=== PATIENT | female | born 1975 | race African-American/Black ===

== ENCOUNTER 2016-06-25 08:01 | Emergency (ER) | payer OTHER ==
[~2016-06-25] VITALS: Ht 162.6 cm; Wt 150.0 kg
[~2016-06-25 08:01] MED LIST: LABE200T2 PO; METH250T PO
[2016-06-25 08:02] VITALS: BP 192/103; PULSE 76; RESP 20; TEMP 98.4; O2SAT 95
[2016-06-25 09:21] LABS: AUTOMATED NEUTROPHIL # 3.4 TH/MM3 (1.8-7.7); BASOPHIL % 0.3 % (0.0-2.0); EOSINOPHIL # 0.1 TH/MM3 (0-0.4); EOSINOPHIL % 1.3 % (0.0-4.0); HEMATOCRIT 32.9 % (35.0-46.0); HEMO FLAGS DIFF FINAL; LYMPH % 29.4 % (9.0-44.0); LYMPHOCYTE # 1.6 TH/MM3 (1.0-4.8); MEAN CELL VOLUME 82.6 FL (80.0-100.0); MEAN CORPUSCULAR HEMOGLOBIN 27.4 PG (27.0-34.0); MEAN CORPUSCULAR HGB CONC 33.2 % (32.0-36.0); MONO % 6.5 % (0.0-8.0); NEUT % 62.5 % (16.0-70.0); PLATELET COUNT 285 TH/MM3 (150-450); RED BLOOD COUNT 3.98 MIL/MM3 (4.00-5.30); RED CELL DISTRIBUTION WIDTH 15.8 % (11.6-17.2); WHITE BLOOD COUNT 5.4 TH/MM3 (4.0-11.0)
[2016-06-25 09:40] LABS: ANION GAP 8 MEQ/L (5-15); AST (GOT) 16 U/L (15-37); BICARBONATE 21.6 MEQ/L (21.0-32.0); BLOOD UREA NITROGEN 12 MG/DL (7-18); CHLORIDE 104 MEQ/L (98-107); GLOMERULAR FILTRATION RATE 77 ML/MIN (>89); POTASSIUM 3.7 MEQ/L (3.5-5.1); SODIUM (NA) 134 MEQ/L (136-145)
[2016-06-25 09:59] LABS: ALKALINE PHOSPHATASE 55 U/L (45-117); ALT (GPT) 27 U/L (10-53); BETA HCG QUANT 56345 MIU/ML (0-5); TOTAL BILIRUBIN ADULT 0.1 MG/DL (0.2-1.0)
[2016-06-25 10:00] VITALS: BP 156/81; PULSE 75; RESP 19; O2SAT 97
[2016-06-25] MEDS ORDERED: PREN29TA PO (10:02)
[2016-06-25 10:07] VITALS: O2SAT 96
--- NOTE | 2016-06-25 10:11 | PD ---
HPI Chief Complaint: Related Problem Time Seen by Provider: 10:02 Travel History International Travel<30 days: No Contact w/Intl Traveler<30days: No Traveled to known affect area: No History of Present Illness HPI 41-year-old female complains of vaginal spotting. Patient states that she is 14 weeks . Patient has been seen by OB physician. Patient states that her blood type is A+. Patient states that she had ultrasound done earlier in this . Patient states that she noticed some vaginal spotting today. Patient denies abdominal pain or pelvic pain. Patient denies any dysuria or frequency. Patient denies any fever chills. Patient denies any back pain. PFSH Past Medical History Cardiovascular Problems: Yes (htn) Diminished Hearing: Yes (FROM ) Hypertension: Yes Reproductive: Yes (OVARIAN CYSTS) Immunizations Current: No Tetanus Vaccination: Unknown ?: LMP: 04/01/17 : 8 Para: 6 Miscarriage: 0 : 0 Dilation and Curettage (D&C): Yes Past Surgical History Surgical History: No Previous Surgery Social History Alcohol Use: No Tobacco Use: No Substance Use: No Allergies-Medications (Allergen,Severity, Reaction): Coded Allergies: No Known Allergies (Verified , 06/22/16) Reported Meds & Prescriptions Reported Meds & Active Scripts Active Reported Plus Iron 29-1 mg ( Vit-Iron Carbonyl) 1 Tab Tab 1 Tab PO DAILY Review of Systems General / Constitutional: No: Fever Eyes: No: Visual changes HENT: No: Headaches Cardiovascular: No: Chest Pain or Discomfort Respiratory: No: Shortness of Breath Gastrointestinal: No: Abdominal Pain Genitourinary: Positive: Vaginal Bleeding, No: Dysuria Musculoskeletal: No: Pain Skin: No Rash Neurologic: No: Weakness Psychiatric: No: Depression Endocrine: No: Polydipsia Hematologic/Lymphatic: No: Easy Bruising Physical Exam Narrative GENERAL: Well-nourished, well-developed patient. SKIN: Warm and dry. HEAD: Normocephalic. EYES: No scleral icterus. No injection or drainage. NECK: Supple, trachea midline. No JVD or lymphadenopathy. CARDIOVASCULAR: Regular rate and rhythm without murmurs, gallops, or rubs. RESPIRATORY: Breath sounds equal bilaterally. No accessory muscle use. GASTROINTESTINAL: Abdomen soft, non-tender, nondistended. MUSCULOSKELETAL: No cyanosis, or edema. BACK: Nontender without obvious deformity. No CVA tenderness. HOSPICE VOLUNTEER COORDINATOR exam: Patient has dark brown discharge in vaginal vault. The cervix long thick and closed. No tenderness on palpation of the uterus. Data Data Last Documented VS Vital Signs Date Time Temp Pulse Resp B/P Pulse Ox O2 Delivery O2 Flow Rate FiO2 06/25/16 10:00 75 19 156/81 97 Room Air 06/25/16 08:02 98.4 Orders Complete Blood Count With Diff (06/25/16 08:12) Iv Access Insert/Monitor (06/25/16 08:12) Oxygen Administration (06/25/16 08:12) Oximetry (06/25/16 08:12) Ed Urine Pregnancytest Poc (06/25/16 08:12) Type And Screen (06/25/16 08:12) Beta Hcg (Quant/Titer) (06/25/16 08:12) Comprehensive Metabolic Panel (06/25/16 08:12) Labs Laboratory Tests Test 06/25/16 08:25 White Blood Count 5.4 TH/MM3 Red Blood Count 3.98 MIL/MM3 Hemoglobin 10.9 GM/DL Hematocrit 32.9 % Mean Corpuscular Volume 82.6 FL Mean Corpuscular Hemoglobin 27.4 PG Mean Corpuscular Hemoglobin 33.2 % Concent Red Cell Distribution Width 15.8 % Platelet Count 285 TH/MM3 Mean Platelet Volume 8.2 FL Neutrophils (%) (Auto) 62.5 % Lymphocytes (%) (Auto) 29.4 % Monocytes (%) (Auto) 6.5 % Eosinophils (%) (Auto) 1.3 % Basophils (%) (Auto) 0.3 % Neutrophils # (Auto) 3.4 TH/MM3 Lymphocytes # (Auto) 1.6 TH/MM3 Monocytes # (Auto) 0.4 TH/MM3 Eosinophils # (Auto) 0.1 TH/MM3 Basophils # (Auto) 0.0 TH/MM3 CBC Comment DIFF FINAL Differential Comment Sodium Level 134 MEQ/L Potassium Level 3.7 MEQ/L Chloride Level 104 MEQ/L Carbon Dioxide Level 21.6 MEQ/L Anion Gap 8 MEQ/L Blood Urea Nitrogen 12 MG/DL Creatinine 0.97 MG/DL Estimat Glomerular Filtration 77 ML/MIN Rate Random Glucose 84 MG/DL Calcium Level 8.6 MG/DL Total Bilirubin 0.1 MG/DL Aspartate Amino Transf 16 U/L (AST/SGOT) Alanine Aminotransferase 27 U/L (ALT/SGPT) Alkaline Phosphatase 55 U/L Total Protein 7.7 GM/DL Albumin 2.9 GM/DL Human Chorionic Gonadotropin, 89002 MIU/ML Quant Blood Type A POSITIVE Antibody Screen NEGATIVE MDM Medical Decision Making Medical Screen Exam Complete: Yes Emergency Medical Condition: Yes Differential Diagnosis Differential diagnosis including cervical irritation, threatened AB. Narrative Course 41-year-old female, 14 weeks , with vaginal spotting. Pelvic ultrasound shows fetus with active heart tone. Blood type is A+. Procedures Procedure Narrative Emergency Department Pelvic ultrasound was performed with patient consent. The curvilinear probe was used in the transverse and sagittal views within the suprapubic region revealing single intrauterine . heart rate was 140. Diagnosis Primary Impression: Vaginal bleeding in patient at less than 20 weeks gestation Patient Instructions: General Instructions Additional Instructions: Continue with vitamins. Follow-up with OB physician. Med/Other Pt SpecificInfo: No Meds Exist/No RX given Disposition: 01 DISCHARGE HOME Condition: Stable Oseas Galvan MD Jun 25, 2016 10:11
[2016-08-26] MEDS ORDERED: ONDA4TAB7 SL (08:59)
[2016-08-26] MEDS ORDERED: PREN28CA PO (08:59)
[2016-09-23] MEDS ORDERED: LABE200T2 PO (09:09)
[2016-09-23] MEDS ORDERED: [UNRECOGNIZED DRUG - CODE] EACH EAR (09:29)
[2016-10-06] MEDS ORDERED: [UNRECOGNIZED DRUG - OTHER] PO (10:29)
[2016-10-21] MEDS ORDERED: ZOFR4TAB PO (11:00)
[2016-11-04] MEDS ORDERED: [UNRECOGNIZED DRUG - OTHER] PO (13:19)
[2016-11-04] MEDS ORDERED: ZOFR4TAB PO (13:19)
== END 2016-06-25 10:50 | disposition home or self-care (01) ==
LOC: NEPD 08:01
DX: O46.92 Antepartum hemorrhage, unspecified, second trimester (principal); I10 Essential (primary) hypertension; Z87.42 Personal history of other diseases of the female genital tract; Z3A.14 14 weeks gestation of pregnancy
CPT/HCPCS: 80053; 84702; 84703; 85025; 86850; 86900; 86901; 99284

== ENCOUNTER → 2016-08-18 | Outpatient (CLI) | payer OTHER ==
[~2016-08-18] MED LIST changes: -METH250T PO; +ONDA4TAB7 SL; +PREN28CA PO; +PREN29TA PO; +ZOFR4TAB PO; +[UNRECOGNIZED DRUG - CODE] EACH EAR; +[UNRECOGNIZED DRUG - OTHER] PO
== END ==
LOC: HPND 08:18
PROVIDERS: ATTEND Obstetrics & Gynecology
DX: O99.212 Obesity complicating pregnancy, second trimester (principal); O09.522 Supervision of elderly multigravida, second trimester; O10.912 Unspecified pre-existing hypertension complicating pregnancy, second trimester; E66.01 Morbid (severe) obesity due to excess calories; Z68.43 Body mass index [BMI] 50.0-59.9, adult
CPT/HCPCS: 76811

== ENCOUNTER → 2016-09-15 | Outpatient (CLI) | payer OTHER, MEDICAID | LOC: HPND 09:58 | PROVIDERS: ATTEND Obstetrics & Gynecology | DX: O09.522 Supervision of elderly multigravida, second trimester (principal); O35.1XX0 Maternal care for (suspected) chromosomal abnormality in fetus, not applicable or unspecified; O99.212 Obesity complicating pregnancy, second trimester; E66.01 Morbid (severe) obesity due to excess calories; Z68.42 Body mass index [BMI] 45.0-49.9, adult; Z3A.25 25 weeks gestation of pregnancy | CPT/HCPCS: 76816 ==

== ENCOUNTER → 2016-10-13 | Outpatient (CLI) | payer OTHER, MEDICAID | LOC: HPND 09:51 | PROVIDERS: ATTEND Obstetrics & Gynecology | DX: O35.1XX0 Maternal care for (suspected) chromosomal abnormality in fetus, not applicable or unspecified (principal); O09.522 Supervision of elderly multigravida, second trimester; O10.912 Unspecified pre-existing hypertension complicating pregnancy, second trimester; O99.212 Obesity complicating pregnancy, second trimester; E66.01 Morbid (severe) obesity due to excess calories; Z68.43 Body mass index [BMI] 50.0-59.9, adult | CPT/HCPCS: 76816 ==

== ENCOUNTER 2016-12-02 08:29 | Emergency (ER) | payer OTHER, MEDICAID ==
[~2016-12-02 08:29] MED LIST changes: +FERRTAB2 PO; +ZOFR8TAB PO; -[UNRECOGNIZED DRUG - CODE] EACH EAR
--- NOTE | 2016-12-02 09:19 | PD ---
HPI Chief Complaint abdominal pain Date Seen: Dec 02, 2016 Time Seen: 09:00 (Yannick Brooks MD R1) Travel History International Travel<30 Days: No Contact w/Intl Traveler<30Days: No Known Affected Area: No (Yannick Brooks MD R1) History of Present Illness HPI Mrs. Ramirez is a 41-year-old at 36 weeks and 1 day with a history of chronic hypertension on labetalol who presents with abdominal pain. She reports that the abdominal pain started about 3 days ago, but became acutely worse last night. It woke her up from sleep, so she decided to shower, after which it became even worse. Patient reports that patient reports that her pain is worse with walking but better with rest. She describes the pain as crampy constant increasing supraumbilical pain in a bandlike distribution over her abdomen; severity 6-7 out of 10. She denies any leakage of fluid, vaginal bleeding. She endorses movement. She endorses nausea, but review systems is otherwise negative. Patient reports that she follows with OB diagnostics/maternal- medicine twice a week. She reports that her last blood pressures were high on Wednesday and . Patient was last seen by OB diagnostics on 11/30/16. Ultrasound at that time showed single IUP in cephalic presentation with BPP of 10 out of 10, blood pressure 143/59. Para: 6 : 8 (Yannick Brooks MD R1) History Past Medical History Narrative Medical Patient reports a history of chronic hypertension for which she takes labetalol 200 mg twice a day (Yannick Brooks MD R1) Obstetric History Obstetric History Patient is a . She reports that she had a D&C after her last child for vaginal bleeding. She also reports a history of one molar . The rest of her pregnancies were full-term vaginal deliveries. (Yannick Brooks MD R1) Past Surgical History Narrative Surgical D&C after last delivery (Yannick Brooks MD) Family History Narrative Family History Family history of diabetes and hypertension (Yannick Brooks MD) Social History Narrative Social History Patient lives at home with her 6 children. Alcohol Use: No Tobacco Use: No Substance Abuse: No (Yannick Brooks MD R1) Allergies-Medications (Allergen,Severity, Reaction): Coded Allergies: No Known Allergies (Verified , 11/17/16) Home Meds Active Scripts Multi-Vit/Iron-Folic Vzig-R39-Qut C (Ferralet)90-1-0.012-120 mg Tab90 Caplet PO DAILY #60 CAPLET Ref 3 Prov:Mara Mcqueen 11/23/16 Ondansetron (Zofran)8 Mg Tab8 Mg PO TID #10 TAB Ref 0 Prov:Mara Mcqueen 11/23/16 Ondansetron (Zofran)4 Mg Tab4 Mg PO Q12HR PRN (NAUSEA OR VOMITING) #6 TAB Ref 0 Prov:Joaquin Wadsworth MD 11/17/16 Ferrous Fumarate (Iron W-Stool Softener Cplet)1 Each Tablet.er1 Cap PO DAILY # 90 CAP Prov:Joaquin Wadsworth MD 11/17/16 Vit W/ Ferrous Fumara (C-José Dha 28-1-200 mg)1 Cap Cap28 Cap PO DAILY #90 CAPLET Prov:Joaquin Wadsworth MD 08/26/16 Ondansetron Odt 4 Mg Tab4 Mg SL Q12HR PRN (Nausea/Vomiting) #20 TAB Ref 0 Prov:Joaquin Wadsworth MD 08/26/16 Reported Medications Labetalol 200 Mg [id number] Mg PO BID Ref 0 09/23/16 Vit-Iron Carbonyl ( Plus Iron 29-1 mg)1 Tab Tab1 Tab PO DAILY #30 TAB Ref 0 06/25/16 Review of Systems General / Constitutional: No: Fever, Chills Eyes: No: Blurred Vision, Visual changes HENT: No: Headaches Cardiovascular: No: Chest Pain or Discomfort, Edema Respiratory: No: Short of Breath Gastrointestinal: Nausea, Abdominal Pain, No: Vomiting Genitourinary: No: Dysuria Musculoskeletal: Cramping, Pain (abdominal), No: Edema Skin: No Rash (Yannick Brooks MD R1) Physical Exam Blood pressure 153/68, heart rate 67, respiratory rate 22, temperature 97.6, pain 6. Narrative GENERAL: Well-nourished, well-developed morbidly obese female patient. SKIN: Warm and dry. HEAD: Normocephalic and atraumatic. EYES: No scleral icterus. No injection or drainage. ENT: No nasal drainage noted. Mucous membranes pink. Airway patent. NECK: Supple, trachea midline. No JVD. CARDIOVASCULAR: Regular rate and rhythm without murmurs, gallops, or rubs. RESPIRATORY: Breath sounds equal bilaterally. No accessory muscle use. BREASTS: Bilateral exam showed no masses , no retractions, no nipple discharge. ABDOMEN/GI: Abdomen soft, non-tender, bowel sounds present, no rebound, no guarding Gravid to [-] weeks size Fundal Height: [-] GENITOURINARY: External Genitalia: intact and normal in appearance BUS glands: [-] Cervix: [-] Dilatation: [-] Effacement: [-] Station: [-] Presentation: [-] Membranes: [intact or ruptured] Uterine Contractions: [-] FHT's: Category: [-] Baseline: [-] Reactive: [-] Variability: [-] Decels: [-] EXTREMITIES: No cyanosis. Trace pitting edema on the right leg. BACK: Nontender without obvious deformity. No CVA tenderness. NEUROLOGICAL: Awake and alert. Motor and sensory grossly within normal limits. Five out of 5 muscle strength in all muscle groups. Normal speech. (Yannick Boroks MD R1) Data Data Vital Signs Reviewed: Yes (Yannick Brooks MD R1) MDM Plan Mrs. Ramirez is a 41-year-old at 36 weeks and 1 day with a history of chronic hypertension who presents with abdominal pain. 1. Abdominal pain Monitor vital signs Monitor heart rate Monitor tocometry UA Tylenol 2. Nausea Zofran ODT 3. Elevated blood pressure of 153/68 in the context of chronic hypertension on labetalol Hypertension in labs including CBC, CMP, uric acid, UA, urine creatinine - relevant labs returned within normal limits except for anemia, which patient was already aware of Continue to monitor blood pressure d/w Dr. Waller. Addendum: Patient continues to report intractable pain. Ordered fentanyl 50 g IM 1. Discussed that hot showers, hot baths, warm compresses may help, in addition to bed rest. Patient reported that she can't sleep secondary to pain. Explained that the pain medication may help with that. Discussed indications to return to the OB ED. (Yannick Brooks MD R1) Diagnosis Diagnosis: Primary Impression: Abdominal pain affecting Additional Impression: HTN (hypertension) Disposition: 01 DISCHARGE HOME Condition: Good Attestation I have discussed this patient's care and plan with resident (Adali Waller MD) Yannick Brooks MD R1 Dec 02, 2016 09:19 Adali Waller MD Dec 08, 2016 12:45
[2016-12-02] MEDS ORDERED: ONDANSETRON ODT 4 MG TAB PO ONE (09:30)
[2016-12-02] MEDS ORDERED: ACETAMINOPHEN 325 MG TAB PO ONE (09:30)
[2016-12-02 10:13] LABS: MEAN CELL VOLUME 83.3 FL (80.0-100.0); MEAN CORPUSCULAR HEMOGLOBIN 27.6 PG (27.0-34.0); MEAN CORPUSCULAR HGB CONC 33.1 % (32.0-36.0); PLATELET COUNT 247 TH/MM3 (150-450); RED BLOOD COUNT 3.61 MIL/MM3 (4.00-5.30); RED CELL DISTRIBUTION WIDTH 17.7 % (11.6-17.2); REVIEW FLAG FINAL; WHITE BLOOD COUNT 6.1 TH/MM3 (4.0-11.0)
[2016-12-02 10:35] LABS: BLOOD UREA NITROGEN 9 MG/DL (7-18); CHLORIDE 106 MEQ/L (98-107); POTASSIUM 3.6 MEQ/L (3.5-5.1); SODIUM (NA) 137 MEQ/L (136-145)
[2016-12-02 10:37] LABS: BACTERIA, URINE RARE /hpf; BLOOD, URINE NEG (NEG); COMMENT (UR) CULT NOT INDICATED; CULTURE IF INDICATED CULT NOT INDICATED; GLUCOSE,URINE NEG (NEG); KETONE, URINE NEG (NEG); MUCUS URINE FEW /lpf (OCC); NITRITE,URINE NEG (NEG); SQUAMOUS EPITHELIAL CELL URINE 8 /hpf (0-5); URINE COLOR YELLOW (YELLW/STRAW)
[2016-12-02 11:05] LABS: ALT (GPT) 30 U/L (10-53); ANION GAP 7 MEQ/L (5-15); AST (GOT) 25 U/L (15-37); BICARBONATE 23.9 MEQ/L (21.0-32.0); GLOMERULAR FILTRATION RATE 87 ML/MIN (>89); URIC ACID 5.8 MG/DL (2.6-6.0)
[2016-12-02 11:07] LABS: ALKALINE PHOSPHATASE 103 U/L (45-117); TOTAL BILIRUBIN ADULT 0.3 MG/DL (0.2-1.0)
== END 2016-12-02 12:14 | disposition home or self-care (01) ==
LOC: HOBED 08:32
DX: O26.893 Other specified pregnancy related conditions, third trimester (principal); R10.9 Unspecified abdominal pain; R11.0 Nausea; O16.3 Unspecified maternal hypertension, third trimester; Z3A.36 36 weeks gestation of pregnancy; Z79.899 Other long term (current) drug therapy
CPT/HCPCS: 36415; 80053; 81001; 82570; 84550; 85027; 96372; 99284; J3010

== ENCOUNTER 2016-12-09 12:17 | Emergency (ER) | payer OTHER, MEDICAID ==
[2016-12-09 12:19] VITALS: BP 143/85; PULSE 70; RESP 20; TEMP 98.4; O2SAT 100
--- NOTE | 2016-12-09 12:40 | PD ---
Physical Exam Time Seen by Provider: 12:40 Narrative 41yo F, 37 weeks , was sent by Dr. Gonzalez for c/o SOB, chronic HTN, morbid obesity, tiredness, and dizziness for cardiac workup and EKG. Patient was sent to L&D and was sent back to ER for cardiac workup. Patient seen in triage. VS reviewed. Patient awaiting bed placement. Data Data Last Documented VS Vital Signs Date Time Temp Pulse Resp B/P Pulse Ox O2 Delivery O2 Flow Rate FiO2 12/09/16 12:19 98.4 70 20 143/85 100 MDM Supervised Visit with VICENTE: Arelis Perry Dec 09, 2016 12:40
[2016-12-09 14:24] LABS: AUTOMATED NEUTROPHIL # 4.4 TH/MM3 (1.8-7.7); BASOPHIL % 0.2 % (0.0-2.0); EOSINOPHIL # 0.1 TH/MM3 (0-0.4); EOSINOPHIL % 1.3 % (0.0-4.0); HEMATOCRIT 30.7 % (35.0-46.0); HEMO FLAGS DIFF FINAL; LYMPH % 20.2 % (9.0-44.0); LYMPHOCYTE # 1.3 TH/MM3 (1.0-4.8); MEAN CELL VOLUME 83.8 FL (80.0-100.0); MEAN CORPUSCULAR HEMOGLOBIN 26.7 PG (27.0-34.0); MEAN CORPUSCULAR HGB CONC 31.8 % (32.0-36.0); MONO % 7.9 % (0.0-8.0); NEUT % 70.4 % (16.0-70.0); PLATELET COUNT 235 TH/MM3 (150-450); RED BLOOD COUNT 3.67 MIL/MM3 (4.00-5.30); RED CELL DISTRIBUTION WIDTH 17.6 % (11.6-17.2); WHITE BLOOD COUNT 6.3 TH/MM3 (4.0-11.0)
[2016-12-09 14:33] LABS: APTT (PATIENT) 29.5 SEC (24.3-30.1); PROTHROMBIN TIME - PATIENT 11.1 SEC (9.8-11.6)
[2016-12-09 14:50] LABS: ANION GAP 9 MEQ/L (5-15); BICARBONATE 22.7 MEQ/L (21.0-32.0); BLOOD UREA NITROGEN 9 MG/DL (7-18); CHLORIDE 105 MEQ/L (98-107); GLOMERULAR FILTRATION RATE 83 ML/MIN (>89); POTASSIUM 3.7 MEQ/L (3.5-5.1); SODIUM (NA) 137 MEQ/L (136-145)
[2016-12-09 14:53] LABS: CREATINE KINASE 101 U/L (26-192)
[2016-12-09 15:05] LABS: CKMB 1.1 NG/ML (0.5-3.6)
--- NOTE | 2016-12-09 15:49 | PD ---
HPI Chief Complaint: Cardiac Complaint Time Seen by Provider: 15:40 Travel History International Travel<30 days: No Contact w/Intl Traveler<30days: No Traveled to known affect area: No History of Present Illness HPI 41-year-old female came to the emergency room with history of shortness of breath that she complained to her OB today. Patient is 36 weeks . They sent her to the emergency room to get an EKG and blood test. Patient says that she has been in the waiting room since 11:30 AM. She last ate at 8:00 before going for her OB checkup. Blood test was done in the waiting room so that by the time she came in to see me I had the blood test results back. They were all within normal limit. I discussed with the patient. She never had any chest pain. She is obese and the together seems to be making her uncomfortable as well. Vital signs were otherwise stable. Patient is deaf but can read lips and speak. She has history of hypertension and is on labetalol twice a day. [facility] [place] Past Medical History Narrative Medical List of her past medical, surgical, social and family history was reviewed from the nursing note. Cardiovascular Problems: Yes (htn) Diminished Hearing: Yes (FROM ) Hypertension: Yes Reproductive: Yes ([employer] CY[employer]) Immunizations Current: No : 8 Para: 6 Miscarriage: 0 : 0 Dilation and Curettage (D&C): Yes Social History Alcohol Use: No Tobacco Use: No Substance Use: No Allergies-Medications (Allergen,Severity, Reaction): Coded Allergies: No Known Allergies (Verified , 12/09/16) Comments No known drug allergies. Reported Meds & Prescriptions Reported Meds & Active Scripts Active Ferralet (Multi-Vit/Iron-Folic Dejq-X91-[id number] C) 90-1-0.012-120 mg Tab 90 Caplet PO DAILY Zofran (Ondansetron HCl) 8 Mg Tab 8 Mg PO TID Zofran (Ondansetron HCl) 4 Mg Tab 4 Mg PO Q12HR PRN Iron W-Stool Softener Cplet (Ferrous Fumarate) 1 Each Tablet.er 1 Cap PO DAILY C-José Dha 28-1-200 mg ( Vit W/ Ferrous Fumara) 1 Cap Cap 28 Cap PO DAILY Ondansetron Odt 4 Mg Tab 4 Mg SL Q12HR PRN Reported Labetalol (Labetalol HCl) 200 Mg Tab 200 Mg PO BID Plus Iron 29-1 mg ( Vit-Iron Carbonyl) 1 Tab Tab 1 Tab PO DAILY Narrative Medication List of her home medications reviewed from the nursing note. Review of Systems Except as stated in HPI: all other systems reviewed are Neg Physical Exam Narrative GENERAL: Awake, alert, morbidly obese, anxious SKIN: Focused skin assessment warm/dry. HEAD: Atraumatic. Normocephalic. EYES: Pupils equal and round. No scleral icterus. No injection or drainage. ENT: No nasal bleeding or discharge. Mucous membranes pink and moist. NECK: Trachea midline. No JVD. CARDIOVASCULAR: Regular rate and rhythm. No murmur appreciated. RESPIRATORY: No accessory muscle use. Clear to auscultation. Breath sounds equal bilaterally. GASTROINTESTINAL: Abdomen soft, non-tender, nondistended. Hepatic and splenic margins not palpable. MUSCULOSKELETAL: No obvious deformities. No clubbing. No cyanosis. No edema. NEUROLOGICAL: Awake and alert. No obvious cranial nerve deficits. Motor grossly within normal limits. Normal speech. PSYCHIATRIC: Appropriate mood and affect; insight and judgment normal. Data Data Last Documented VS Vital Signs Date Time Temp Pulse Resp B/P Pulse Ox O2 Delivery O2 Flow Rate FiO2 12/09/16 16:21 97 Room Air 12/09/16 12:19 98.4 70 20 143/85 Orders Electrocardiogram (12/09/16 12:43) Complete Blood Count With Diff (12/09/16 12:43) Basic Metabolic Panel (Bmp) (12/09/16 12:43) Ckmb (Isoenzyme) Profile (12/09/16 12:43) Troponin I (12/09/16 12:43) Iv Access Insert/Monitor (12/09/16 12:43) Ecg Monitoring (12/09/16 12:43) Oxygen Administration (12/09/16 12:43) Oximetry (12/09/16 12:43) Act Partial Throm Time (Ptt) (12/09/16 12:43) Prothrombin Time / Inr (Pt) (12/09/16 12:43) CKMB (12/09/16 13:35) CKMB% (12/09/16 13:35) Acetaminophen (Tylenol) (12/09/16 16:00) Labs Laboratory Tests Test 12/09/16 13:35 White Blood Count 6.3 TH/MM3 Red Blood Count 3.67 MIL/MM3 Hemoglobin 9.8 GM/DL Hematocrit 30.7 % Mean Corpuscular Volume 83.8 FL Mean Corpuscular Hemoglobin 26.7 PG Mean Corpuscular Hemoglobin 31.8 % Concent Red Cell Distribution Width 17.6 % Platelet Count 235 TH/MM3 Mean Platelet Volume 7.5 FL Neutrophils (%) (Auto) 70.4 % Lymphocytes (%) (Auto) 20.2 % Monocytes (%) (Auto) 7.9 % Eosinophils (%) (Auto) 1.3 % Basophils (%) (Auto) 0.2 % Neutrophils # (Auto) 4.4 TH/MM3 Lymphocytes # (Auto) 1.3 TH/MM3 Monocytes # (Auto) 0.5 TH/MM3 Eosinophils # (Auto) 0.1 TH/MM3 Basophils # (Auto) 0.0 TH/MM3 CBC Comment DIFF FINAL Differential Comment Prothrombin Time 11.1 SEC Prothromb Time International 1.0 RATIO Ratio Activated Partial 29.5 SEC Thromboplast Time Sodium Level 137 MEQ/L Potassium Level 3.7 MEQ/L Chloride Level 105 MEQ/L Carbon Dioxide Level 22.7 MEQ/L Anion Gap 9 MEQ/L Blood Urea Nitrogen 9 MG/DL Creatinine 0.91 MG/DL Estimat Glomerular Filtration 83 ML/MIN Rate Random Glucose 73 MG/DL Calcium Level 8.7 MG/DL Total Creatine Kinase 101 U/L Creatine Kinase MB 1.1 NG/ML Troponin I LESS THAN 0.02 NG/ML MDM Medical Decision Making Medical Screen Exam Complete: Yes Emergency Medical Condition: Yes Medical Record Reviewed: Yes Interpretation(s) Twelve-lead EKG was reviewed by me. Normal sinus rhythm, normal axis, LVH. Heart rate of 68 bpm. Differential Diagnosis Third trimester , hypertension, obesity Narrative Course 3:40 PM I explained to the patient that her blood test results look okay. She is slightly anemic but she is on vitamin and iron pills. At this point she needs to go back to her OB in follow-up as per her appointments. Procedures EKG Prior to Arrival: No Diagnosis Primary Impression: Third trimester Additional Impressions: Shortness of breath Obesity Qualified Code: E66.9 - Obesity with serious comorbidity, unspecified classification, unspecified obesity type Referrals: Primary Care Physician Additional Instructions: Please return to the ER if the condition worsens or any other new concerns. Please follow-up with your BUTCHER HELPER for the -related issues. Med/Other Pt SpecificInfo: No Change to Meds Disposition: 01 DISCHARGE HOME Condition: Gail Baig MD Dec 09, 2016 15:49
[2016-12-09] MEDS ORDERED: ACETAMINOPHEN 325 MG TAB PO ONE (16:00)
[2016-12-09 16:21] VITALS: O2SAT 97
--- NOTE | 2016-12-10 15:06 | EKG ---
Date Performed: 12/09/2016 Time Performed: 13:11:14 PTAGE: 41 years EKG: Sinus rhythm MINIMAL VOLTAGE CRITERIA FOR LVH, CONSIDER NORMAL VARIANT BORDERLINE ECG PREVIOUS TRACING : 03/10/2002 15.14 Since previous tracing, no significant change noted DOCTOR: Kalyani Ramos Interpretating Date/Time 12/10/2016 15:05:23
== END 2016-12-09 17:22 | disposition home or self-care (01) ==
LOC: NEPE 12:17
DX: O26.893 Other specified pregnancy related conditions, third trimester (principal); R06.02 Shortness of breath; O99.213 Obesity complicating pregnancy, third trimester; Z3A.36 36 weeks gestation of pregnancy; H91.90 Unspecified hearing loss, unspecified ear; I10 Essential (primary) hypertension
CPT/HCPCS: 80048; 82550; 82552; 84484; 85025; 85610; 85730; 93005; 99285

== ENCOUNTER 2016-12-21 08:31 | Inpatient (IN) | payer OTHER, MEDICAID, MEDICARE ==
[2016-12-21] VITALS (158 sets, daily range): BP systolic 126–206; BP diastolic 66–116; PULSE 53–87; RESP 16–26; TEMP 97.7–98.5; O2SAT 98–100
--- NOTE | 2016-12-21 09:41 | PD ---
HPI Chief Complaint Abdominal pain and labored breathing Date Seen: Dec 21, 2016 Time Seen: 09:31 Travel History International Travel<30 Days: No Contact w/Intl Traveler<30Days: No Known Affected Area: No History of Present Illness HPI 41-year-old who is at 38 weeks and 6 days being followed with morbid obesity, chronic hypertension on labetalol, chronic fatigue, comes into the hospital today complaining of labored breathing and abdominal pain. She can't tell whether this is contractions but she feels like she's got a band across the fundus. Patient states that the labor breathing has been present for several weeks and occasionally associated with sharp chest pain and I do see this documented in her records. Patient is a chronic hypertension on labetalol 200 mg 3 times a day with her last 24 hour urine showing a 231 mg of protein at 09/23/2016. Patient is been seeing maternal medicine as well and she has resolved pyelectasis. Para: 6 : 7 History Past Medical History Narrative Medical Chronic hypertension Morbid obesity [place] of hearingpatient does not wear hearing aids nor does she sign. She states that she reads lips and she would like people to come close in order to communicate. Obstetric History Obstetric History Spontaneous vaginal delivery 6, ranging from 7 lbs. 2 oz.-8 lbs. 6 oz. Past Surgical History Surgical History: No Previous Surgery Family History Family History: Negative Social History Alcohol Use: No Tobacco Use: No Substance Abuse: No Allergies-Medications (Allergen,Severity, Reaction): Coded Allergies: No Known Allergies (Verified , 12/16/16) Home Meds Active Scripts Multi-Vit/Iron-Folic Aask-Y10-Vrh C (Ferralet)90-1-0.012-120 mg Tab90 Caplet PO DAILY #60 CAPLET Ref 3 Prov:Mara Mcqueen 11/23/16 Ondansetron (Zofran)8 Mg Tab8 Mg PO TID #10 TAB Ref 0 Prov:Mara Mcqueen 11/23/16 Ondansetron (Zofran)4 Mg Tab4 Mg PO Q12HR PRN (NAUSEA OR VOMITING) #6 TAB Ref 0 Prov:Joaquin Wadsworth MD 11/17/16 Ferrous Fumarate (Iron W-Stool Softener Cplet)1 Each Tablet.er1 Cap PO DAILY # 90 CAP Prov:Joaquin Wadsworth MD 11/17/16 Vit W/ Ferrous Fumara (C-José Dha 28-1-200 mg)1 Cap Cap28 Cap PO DAILY #90 CAPLET Prov:Joaquin Wadsworth MD 08/26/16 Ondansetron Odt 4 Mg Tab4 Mg SL Q12HR PRN (Nausea/Vomiting) #20 TAB Ref 0 Prov:Joaquin Wadsworth MD 08/26/16 Reported Medications Labetalol 200 Mg [id number] Mg PO BID Ref 0 09/23/16 Vit-Iron Carbonyl ( Plus Iron 29-1 mg)1 Tab Tab1 Tab PO DAILY #30 TAB Ref 0 06/25/16 Review of Systems Except as stated in HPI: all other systems reviewed are Neg Physical Exam Narrative GENERAL: Well-nourished, well-developed patient. SKIN: Warm and dry. HEAD: Normocephalic and atraumatic. EYES: No scleral icterus. No injection or drainage. ENT: No nasal drainage noted. Mucous membranes pink. Airway patent. NECK: Supple, trachea midline. No JVD. CARDIOVASCULAR: Regular rate and rhythm without murmurs, gallops, or rubs. RESPIRATORY: Breath sounds equal bilaterally. No accessory muscle use. ABDOMEN/GI: Abdomen soft, non-tender, bowel sounds present, no rebound, no guarding Gravid to [-42] weeks size Fundal Height: [-] GENITOURINARY: External Genitalia: intact and normal in appearance BUS glands: [-Normal] Cervix: [Posterior-] Dilatation: [-3-4] Effacement: [-80] Station: [--3] Presentation: [-Vertex] Membranes: [intact ] Uterine Contractions: [Cannot monitor due to patient's habitus-] FHT's: Category: [1-] Baseline: [-140] Reactive: [Moderate-] Variability: [-Moderate] Decels: [-Absent] EXTREMITIES: No cyanosis or edema. BACK: Nontender without obvious deformity. No CVA tenderness. NEUROLOGICAL: Awake and alert. Motor and sensory grossly within normal limits. Five out of 5 muscle strength in all muscle groups. Normal speech. Data Data Vital Signs Reviewed: Yes MDM Plan 41-year-old with morbid obesity, chronic hypertension, labored breathing, sharp chest pain, abdominal pain, at 38 weeks and 6 days --GBS negative --Stat EKG this has been a chronic issue with labored breathing and sharp chest discomfort. Doubt cardiac but EDK ordered --Chronic hypertension with exacerbation with severe hypertension. Will start severe hypertension protocol. Admit for induction of labor after BP managed --Magnesium sulfate. --Advanced maternal age - MFM has evaluated --Renal pyectasis resolved on sonogram Diagnosis Diagnosis: Primary Impression: 38 weeks gestation of Additional Impressions: Hard of hearing Severe hypertension affecting in third trimester Chronic hypertension affecting Morbid obesity Advanced maternal age in multigravida Adali Waller MD Dec 21, 2016 09:41
[2016-12-21] MEDS ORDERED: LACTATED RINGER'S 1000 ML INJ 1,000 ML IV PRN (09:42)
[2016-12-21] MEDS ORDERED: LIDOCAINE HCL 1% 50 ML VIAL INFIL PRN (09:45)
[2016-12-21] MEDS ORDERED: LIDOCAINE HCL 1% 50 ML VIAL I-DERMAL PRN (09:45)
[2016-12-21] MEDS ORDERED: SODIUM CHLORID 0.9% 500 ML INJ 500 ML IV PRN (09:45)
[2016-12-21] MEDS ORDERED: ONDANSETRON HCL 4 MG/2 ML VIAL IV PRN (09:45)
[2016-12-21] MEDS ORDERED: CITRIC ACID-SODIUM CITRATE LIQ 30 ML UDC PO SCH (09:45)
[2016-12-21] MEDS ORDERED: MINERAL OIL 10 ML VIAL TOPICAL PRN (09:45)
[2016-12-21] MEDS ORDERED: OXYTOCIN 30 UNITS-500ML PREMIX 500 ML IV ONE ×2 (09:45→23:15)
[2016-12-21] MEDS ORDERED: SODIUM CHLOR 0.9% 1000 ML INJ 1,000 ML IV PRN (10:02)
[2016-12-21 10:45] LABS: AUTOMATED NEUTROPHIL # 3.6 TH/MM3 (1.8-7.7); BASOPHIL % 0.2 % (0.0-2.0); EOSINOPHIL # 0.1 TH/MM3 (0-0.4); EOSINOPHIL % 1.4 % (0.0-4.0); HEMATOCRIT 31.4 % (35.0-46.0); HEMO FLAGS DIFF FINAL; LYMPH % 21.8 % (9.0-44.0); LYMPHOCYTE # 1.1 TH/MM3 (1.0-4.8); MEAN CELL VOLUME 83.3 FL (80.0-100.0); MEAN CORPUSCULAR HEMOGLOBIN 26.9 PG (27.0-34.0); MEAN CORPUSCULAR HGB CONC 32.3 % (32.0-36.0); MONO % 6.9 % (0.0-8.0); NEUT % 69.7 % (16.0-70.0); PLATELET COUNT 262 TH/MM3 (150-450); RED BLOOD COUNT 3.76 MIL/MM3 (4.00-5.30); RED CELL DISTRIBUTION WIDTH 17.7 % (11.6-17.2); WHITE BLOOD COUNT 5.2 TH/MM3 (4.0-11.0)
[2016-12-21 11:08] LABS: ANION GAP 9 MEQ/L (5-15); AST (GOT) 40 U/L (15-37); BICARBONATE 21.2 MEQ/L (21.0-32.0); BLOOD UREA NITROGEN 9 MG/DL (7-18); CHLORIDE 106 MEQ/L (98-107); GLOMERULAR FILTRATION RATE 84 ML/MIN (>89); POTASSIUM 3.3 MEQ/L (3.5-5.1); SODIUM (NA) 136 MEQ/L (136-145)
[2016-12-21 11:11] LABS: ALKALINE PHOSPHATASE 125 U/L (45-117); ALT (GPT) 48 U/L (10-53); TOTAL BILIRUBIN ADULT 0.4 MG/DL (0.2-1.0); URIC ACID 6.7 MG/DL (2.6-6.0)
[2016-12-21] MEDS ORDERED: MAGNESIUM SULFATE 40 GM PREMIX 1,000 ML IV SCH ×2 (11:52→23:18)
[2016-12-21] MEDS ORDERED: MAGNESIUM SULFATE 4 GM PREMIX 100 ML ONE (11:54)
--- NOTE | 2016-12-21 11:57 | HHI.HP ---
History & Physical H&P HPI Chief Complaint Abdominal pain and labored breathing Date Seen: Dec 21, 2016 Time Seen: 09:31 Travel History International Travel<30 Days: No Contact w/Intl Traveler<30Days: No Known Affected Area: No History of Present Illness HPI 41-year-old who is at 38 weeks and 6 days being followed with morbid obesity, chronic hypertension on labetalol, chronic fatigue, comes into the hospital today complaining of labored breathing and abdominal pain. She can't tell whether this is contractions but she feels like she's got a band across the fundus. Patient states that the labor breathing has been present for several weeks and occasionally associated with sharp chest pain and I do see this documented in her records. Patient is a chronic hypertension on labetalol 200 mg 3 times a day with her last 24 hour urine showing a 231 mg of protein at 09/23/2016. Patient is been seeing maternal medicine as well and she has resolved pyelectasis. Para: 6 : 7 History Past Medical History Narrative Medical Chronic hypertension Morbid obesity [place] of hearingpatient does not wear hearing aids nor does she sign. She states that she reads lips and she would like people to come close in order to communicate. Obstetric History Obstetric History Spontaneous vaginal delivery 6, ranging from 7 lbs. 2 oz.-8 lbs. 6 oz. Past Surgical History Surgical History: No Previous Surgery Family History Family History: Negative Social History Alcohol Use: No Tobacco Use: No Substance Abuse: No Allergies-Medications (Allergen,Severity, Reaction): Coded Allergies: No Known Allergies (Verified , 12/16/16) Home Meds Active Scripts Multi-Vit/Iron-Folic Ietq-E88-Uqs C (Ferralet)90-1-0.012-120 mg Tab90 Caplet PO DAILY #60 CAPLET Ref 3 Prov:Mara Mcqueen 11/23/16 Ondansetron (Zofran)8 Mg Tab8 Mg PO TID #10 TAB Ref 0 Prov:Maar Mcqueen 11/23/16 Ondansetron (Zofran)4 Mg Tab4 Mg PO Q12HR PRN (NAUSEA OR VOMITING) #6 TAB Ref 0 Prov:Joaquin Wadsworth MD 11/17/16 Ferrous Fumarate (Iron W-Stool Softener Cplet)1 Each Tablet.er1 Cap PO DAILY # 90 CAP Prov:Joaquin Wadsworth MD 11/17/16 Vit W/ Ferrous Fumara (C-José Dha 28-1-200 mg)1 Cap Cap28 Cap PO DAILY #90 CAPLET Prov:Joaquin Wadsworth MD 08/26/16 Ondansetron Odt 4 Mg Tab4 Mg SL Q12HR PRN (Nausea/Vomiting) #20 TAB Ref 0 Prov:Joaquin Wadsworth MD 08/26/16 Reported Medications Labetalol 200 Mg Ibd293 Mg PO BID Ref 0 09/23/16 Vit-Iron Carbonyl ( Plus Iron 29-1 mg)1 Tab Tab1 Tab PO DAILY #30 TAB Ref 0 06/25/16 Review of Systems Except as stated in HPI: all other systems reviewed are Neg Physical Exam Narrative GENERAL: Well-nourished, well-developed patient. SKIN: Warm and dry. HEAD: Normocephalic and atraumatic. EYES: No scleral icterus. No injection or drainage. ENT: No nasal drainage noted. Mucous membranes pink. Airway patent. NECK: Supple, trachea midline. No JVD. CARDIOVASCULAR: Regular rate and rhythm without murmurs, gallops, or rubs. RESPIRATORY: Breath sounds equal bilaterally. No accessory muscle use. ABDOMEN/GI: Abdomen soft, non-tender, bowel sounds present, no rebound, no guarding Gravid to [-42] weeks size Fundal Height: [-] GENITOURINARY: External Genitalia: intact and normal in appearance BUS glands: [-Normal] Cervix: [Posterior-] Dilatation: [-3-4] Effacement: [-80] Station: [--3] Presentation: [-Vertex] Membranes: [intact ] Uterine Contractions: [Cannot monitor due to patient's habitus-] FHT's: Category: [1-] Baseline: [-140] Reactive: [Moderate-] Variability: [-Moderate] Decels: [-Absent] EXTREMITIES: No cyanosis or edema. BACK: Nontender without obvious deformity. No CVA tenderness. NEUROLOGICAL: Awake and alert. Motor and sensory grossly within normal limits. Five out of 5 muscle strength in all muscle groups. Normal speech. Data Data Vital Signs Reviewed: Yes MDM Plan 41-year-old with morbid obesity, chronic hypertension, labored breathing, sharp chest pain, abdominal pain, at 38 weeks and 6 days 1. IUP- Category I tracing, reassuring. 2. IOL for poorly controlled chronic hypertension- Labetalol 20mg IV PRN BP >160 /110, Magnesium Sulfate 3. GBS negative 4. Morbid Obesity 5. Grand Multiparity 6. Hearing impaired sdw Dr. Mir and Dr. Reddy R1 Dunia Allen MD, R3 Dec 21, 2016 11:57
[2016-12-21] MEDS ORDERED: OXYTOCIN 30 UNITS-500ML PREMIX 500 ML IV SCH (12:00)
[2016-12-21] MEDS ORDERED: MAGNESIUM SULFATE 4 GM PREMIX 100 ML IV ONE (12:00)
--- NOTE | 2016-12-21 12:07 | PD.LABORPN ---
Subjective Subjective Patient is resting comfortably in bed. Objective Vital Signs Vital Signs Date Time Temp Pulse Resp B/P Pulse Ox O2 Delivery O2 Flow Rate FiO2 12/21/16 11:11 24 12/21/16 11:11 98.5 12/21/16 11:10 61 12/21/16 11:05 60 12/21/16 11:02 61 164/85 12/21/16 10:15 26 12/21/16 10:09 65 161/86 12/21/16 09:43 67 158/91 Objective Pelvic Exam: Cervix: midposition Dilatation: 5 Effacement: 70 Station: -3 Presentation: vertex Membranes: AROM, clear fluid Uterine Contractions: irregular FHT's: Category: I Baseline: 140 Reactive: + Variability: moderate Decels: none Assessment/Plan Assessment and Plan 41 year old at 38-6/7 weeks gestation. 1. IUP- Category I tracing, reassuring. 2. IOL for poorly controlled chronic hypertension- Labetalol 20mg IV PRN BP >160 /110, Magnesium Sulfate Pitocin, AROM with clear fluid, IUPC and FSE placed 3. GBS negative 4. Morbid Obesity 5. Grand Multiparity 6. Hearing impaired sdw Dr. Mir and Dr. Reddy R1 Dunia Allen MD, R3 Dec 21, 2016 12:07
[2016-12-21] MEDS: LACTATED RINGER'S 1000 ML INJ 1,000 ML IV SCH ×3 (13:36→19:07)
[2016-12-21] MEDS: LABETALOL HCL 100 MG/20 ML VIAL IV PUSH PRN ×3 (13:40→20:29)
[2016-12-21 13:59] LABS: BACTERIA, URINE RARE /hpf; BLOOD, URINE NEG (NEG); COMMENT (UR) CATH-CULTURE IND; CULTURE IF INDICATED CATH CULTURE IND; GLUCOSE,URINE NEG (NEG); KETONE, URINE NEG (NEG); MUCUS URINE MOD /lpf (OCC); NITRITE,URINE NEG (NEG); PH, URINE 6.5 (5.0-8.5); SQUAMOUS EPITHELIAL CELL URINE 3 /hpf (0-5); URINE COLOR YELLOW (YELLW/STRAW)
[2016-12-21] MEDS ORDERED: fentaNYL 2MCG-BUPIV 0.125% INJ 100 ML ONE (14:50)
[2016-12-21] MEDS ORDERED: ePHEDrine/NS 25 MG/5 ML SYR ONE (14:50)
--- NOTE | 2016-12-21 16:48 | EKG ---
Date Performed: 12/21/2016 Time Performed: 09:46:04 PTAGE: 41 years EKG: Sinus rhythm POSSIBLE LEFT VENTRICULAR HYPERTROPHY ABNORMAL ECG PREVIOUS TRACING : 12/09/2016 13.11 Compared to prior tracing no significant change DOCTOR: Brianda Santizo Interpretating Date/Time 12/21/2016 16:46:21
[2016-12-21] MEDS ORDERED: LABETALOL HCL 200 MG TAB PO SCH (21:00)
[2016-12-21] MEDS ORDERED: OXYTOCIN 10 UNIT/ML AMP ONE (21:55)
[2016-12-21] MEDS ORDERED: ceFAZolin INJ 1,000 MG VIAL ONE (22:02)
[2016-12-21 22:29] LABS: BLOOD GAS O2 HGB SATURATION 9 % (90-100); CORD BLOOD GAS HCO3 20 mmol/L (21-29); CORD BLOOD GAS PCO2 93 mmHG (34-78); CORD BLOOD GAS PH 6.97 (7.14-7.42)
[2016-12-21 22:30] LABS: CORD BLOOD GAS PO2 14 mmHG (3.0-40.0); DRAW SITE CORD BLOOD; STAT YES
[2016-12-21] MEDS ORDERED: SODIUM CHLORIDE 0.9% FLUSH 10 ML FLUSH IV FLUSH PRN (23:15)
[2016-12-21] MEDS ORDERED: ACETAMINOPHEN 325 MG TAB PO PRN (23:15)
[2016-12-21] MEDS ORDERED: ONDANSETRON HCL 4 MG/2 ML VIAL IV PUSH PRN (23:15)
[2016-12-21] MEDS ORDERED: oxyCODONE/ACETAMINOPHEN 5 MG/325 MG TAB PO PRN (23:15)
[2016-12-21] MEDS ORDERED: MORPHINE SULFATE PF 5 MG/10 ML VIAL ONE (23:23)
[2016-12-21] MEDS ORDERED: fentaNYL CITRATE 250 MCG/5 ML AMP ONE (23:23)
[2016-12-21] MEDS ORDERED: ONDANSETRON HCL 4 MG/2 ML VIAL ONE (23:23)
[2016-12-21] MEDS ORDERED: LABETALOL HCL 100 MG/20 ML VIAL IV PUSH PRN (23:30)
--- NOTE | 2016-12-21 23:41 | RADRPT ---
EXAM DATE/TIME: 12/21/2016 23:10 [place] COMPARISON: No previous studies available for comparison. INDICATIONS : Post C section, instrument count. MEDICAL HISTORY : None. SURGICAL HISTORY : None. ENCOUNTER: Initial ACUITY: 1 day PAIN SCORE: 0/10 LOCATION: Bilateral abdomen FINDINGS: KUB performed into half films demonstrate a curvilinear density in the hypogastric region, with a han rounding collection of gas. No metallic densities seen. Gas in nondistended loops of bowel. Degene rative changes in both hips, symmetric. CONCLUSION: No metallic density seen. Flo Farrell MD on December 21, 2016 at 23:37 Board Certified Radiologist. This report was verified electronically.
[2016-12-22] VITALS (157 sets, daily range): BP systolic 121–167; BP diastolic 62–93; PULSE 50–81; RESP 18–24; TEMP 97.7–98.2; O2SAT 92–100
[2016-12-22] MEDS ORDERED: PROPOFOL 200 MG/20 ML AMP IV ONE (00:14)
[2016-12-22] MEDS ORDERED: LACTATED RINGER'S 1,000 ML BAG IV ONE (00:15)
[2016-12-22] MEDS ORDERED: KETOROLAC TROMETHAMINE 30 MG/ML (IVP) VIAL ONE (00:27)
[2016-12-22] MEDS ORDERED: KETOROLAC TROMETHAMINE 60 MG/2 ML (IM) VIAL IM ONE (00:29)
[2016-12-22] MEDS: KETOROLAC TROMETHAMINE 60 MG/2 ML (IM) VIAL IM PRN ×3 (00:30→16:19)
[2016-12-22] MEDS: LACTATED RINGER'S 1000 ML INJ 1,000 ML IV SCH ×2 (03:00→09:50)
[2016-12-22 05:57] LABS: AUTOMATED NEUTROPHIL # 6.4 TH/MM3 (1.8-7.7); BASOPHIL % 0.2 % (0.0-2.0); EOSINOPHIL % 0.4 % (0.0-4.0); HEMO FLAGS DIFF FINAL; LYMPH % 11.3 % (9.0-44.0); LYMPHOCYTE # 0.9 TH/MM3 (1.0-4.8); MEAN CELL VOLUME 83.9 FL (80.0-100.0); MEAN CORPUSCULAR HEMOGLOBIN 26.7 PG (27.0-34.0); MEAN CORPUSCULAR HGB CONC 31.8 % (32.0-36.0); MONO % 5.7 % (0.0-8.0); NEUT % 82.4 % (16.0-70.0); PLATELET COUNT 223 TH/MM3 (150-450); RED BLOOD COUNT 3.57 MIL/MM3 (4.00-5.30); RED CELL DISTRIBUTION WIDTH 18.2 % (11.6-17.2); WHITE BLOOD COUNT 7.8 TH/MM3 (4.0-11.0)
[2016-12-22 06:27] LABS: ALKALINE PHOSPHATASE 99 U/L (45-117); ALT (GPT) 44 U/L (10-53); ANION GAP 11 MEQ/L (5-15); AST (GOT) 40 U/L (15-37); BICARBONATE 20.6 MEQ/L (21.0-32.0); BLOOD UREA NITROGEN 10 MG/DL (7-18); CHLORIDE 105 MEQ/L (98-107); GLOMERULAR FILTRATION RATE 83 ML/MIN (>89); POTASSIUM 3.4 MEQ/L (3.5-5.1); SODIUM (NA) 137 MEQ/L (136-145); TOTAL BILIRUBIN ADULT 0.5 MG/DL (0.2-1.0); URIC ACID 6.8 MG/DL (2.6-6.0)
[2016-12-22] MEDS ORDERED: LABETALOL HCL 100 MG/20 ML VIAL IV PUSH PRN (06:30)
--- NOTE | 2016-12-22 08:04 | HHI.OB ---
Subjective Remarks Postoperative day # 1 AFVSS overnight. Incision not draining. Decreased lochia. Denies dysuria. No breast tenderness. She is feeding the baby via breast/ formula. Appetite good. No nausea or vomiting. No flatus/bowel movement yet. She remains on Magnesium sulfate. Denies calf pain or shortness of breath. Otherwise, she is doing well this morning and has no other complaints. Objective Vitals/I&O Vital Signs Date Time Temp Pulse Resp B/P Pulse Ox O2 Delivery O2 Flow Rate FiO2 12/22/16 06:45 55 95 12/22/16 06:40 55 95 12/22/16 06:35 57 96 12/22/16 06:34 57 166/84 12/22/16 06:33 98.0 12/22/16 06:33 22 12/22/16 06:30 56 95 12/22/16 06:25 56 96 12/22/16 06:20 55 95 12/22/16 06:15 55 95 12/22/16 06:10 55 12/22/16 06:10 54 97 12/22/16 06:05 53 93 12/22/16 06:04 167/84 12/22/16 06:04 53 12/22/16 06:01 162/84 12/22/16 06:01 54 12/22/16 06:00 54 96 12/22/16 05:55 54 96 12/22/16 05:50 56 97 12/22/16 05:45 54 97 12/22/16 05:40 55 96 12/22/16 05:35 57 97 12/22/16 05:30 60 99 12/22/16 05:25 59 99 12/22/16 05:20 58 12/22/16 05:20 60 161/87 98 12/22/16 05:15 22 96 12/22/16 05:10 95 12/22/16 05:05 55 95 12/22/16 05:01 55 161/88 12/22/16 05:00 55 96 12/22/16 04:55 55 95 12/22/16 04:53 24 12/22/16 04:50 54 96 12/22/16 04:45 55 95 12/22/16 04:40 56 96 12/22/16 04:35 54 95 12/22/16 04:30 55 95 8/15/17 04:25 53 94 8/15/17 04:20 53 94 8/15/17 04:19 55 160/83 8/15/17 04:15 51 95 815/17 04:10 52 95 815/17 04:05 52 95 8/15/17 04:01 52 15/17 04:01 160/85 815/17 04:00 51 95 15/17 03:55 95 15/17 03:55 51 15/17 03:50 52 /15/17 03:50 96 15/17 03:45 51 94 /15/17 03:40 54 95 15/17 03:35 59 95 15/17 03:30 52 96 15/17 03:25 52 95 815/17 03:20 52 94 815/17 03:15 52 95 15/17 03:10 51 95 15/17 03:05 50 15/17 03:05 52 24 156/75 95 15/17 03:00 54 98 15/17 02:55 51 99 15/17 02:43 50 20 152/76 815/17 01:50 98 15/17 01:50 51 160/73 15/17 01:50 22 815/17 01:50 97.8 8/15/17 00:50 144/74 815/17 00:50 53 23 100 15/17 00:35 22 100 15/17 00:35 57 139/69 815/17 00:20 98.2 815/17 00:20 51 19 100 815/17 00:20 142/70 815/17 00:05 98.2 8/15/17 00:01 54 22 146/67 8/15/17 00:01 100 14/17 23:50 164/91 814/17 23:49 53 20 176/97 99 814/17 23:25 151/70 8/14/17 23:25 97.7 56 25 100 8/14/17 21:40 69 100 814/17 21:35 58 100 814/17 21:31 54 160/71 8/14/17 21:30 57 99 12/21/16 21:25 56 100 12/21/16 21:20 56 98 12/21/16 21:16 59 165/79 12/21/16 21:15 58 99 12/21/16 21:14 24 12/21/16 21:10 58 12/21/16 21:05 58 12/21/16 21:01 58 162/83 12/21/16 21:01 58 162/83 12/21/16 21:00 56 12/21/16 21:00 20 12/21/16 21:00 56 12/21/16 20:55 56 12/21/16 20:55 55 12/21/16 20:52 55 12/21/16 20:50 56 12/21/16 20:48 55 12/21/16 20:48 170/80 12/21/16 20:45 62 12/21/16 20:45 24 12/21/16 20:40 58 12/21/16 20:35 57 12/21/16 20:31 56 175/84 12/21/16 20:30 57 12/21/16 20:30 24 12/21/16 20:26 56 184/86 12/21/16 20:25 56 12/21/16 20:20 57 12/21/16 20:16 58 169/85 12/21/16 20:15 57 12/21/16 20:10 56 99 12/21/16 20:07 24 12/21/16 20:05 99 12/21/16 20:05 57 12/21/16 20:01 58 158/75 12/21/16 20:00 60 12/21/16 20:00 99 12/21/16 19:56 22 12/21/16 19:55 100 12/21/16 19:55 56 181/84 12/21/16 19:55 53 12/21/16 19:50 100 12/21/16 19:45 100 12/21/16 19:42 24 12/21/16 19:40 100 12/21/16 19:40 60 12/21/16 19:35 54 12/21/16 19:35 100 12/21/16 19:31 55 175/83 12/21/16 19:30 100 12/21/16 19:30 24 8/14/17 19:30 54 1417 19:25 100 1417 19:25 53 1417 19:22 54 170/76 1417 19:20 55 17 19:20 100 1417 19:18 56 163/83 12/21/16 19:16 56 168/77 12/21/16 19:15 99 12/21/16 19:15 57 12/21/16 19:15 98.5 22 12/21/16 19:10 57 1417 19:10 100 12/21/16 19:05 54 12/21/16 19:05 100 12/21/16 19:01 54 156/80 12/21/16 19:00 54 24 12/21/16 19:00 100 12/21/16 19:00 16 12/21/16 18:55 100 12/21/16 18:55 54 12/21/16 18:50 54 12/21/16 18:50 100 12/21/16 18:46 53 166/79 12/21/16 18:45 100 17 18:45 54 12/21/16 18:45 16 12/21/16 18:45 24 12/21/16 18:40 57 12/21/16 18:35 55 12/21/16 18:30 16 17 18:30 22 12/21/16 18:30 55 158/87 17 18:30 56 17 18:27 57 164/82 1417 18:25 61 1417 18:22 54 179/79 17 18:20 53 1417 18:15 24 12/21/16 18:15 56 1417 18:15 55 170/77 17 18:15 16 12/21/16 18:10 57 17 18:05 57 12/21/16 18:01 57 177/82 1417 18:00 24 12/21/16 18:00 57 1417 18:00 98.5 16 1417 17:55 55 1417 17:50 57 17 17:46 57 172/76 8/14/17 17:45 57 16 12/21/16 17:45 24 14/17 17:40 57 14/17 17:35 58 17 17:31 56 165/74 17 17:30 24 1417 17:30 16 1417 17:30 58 1417 17:25 59 1417 17:20 61 17 17:16 62 163/79 12/21/16 17:15 24 12/21/16 17:15 16 12/21/16 17:15 60 12/21/16 17:10 60 12/21/16 17:09 60 152/73 12/21/16 17:06 61 170/76 12/21/16 17:05 60 12/21/16 17:01 61 164/76 12/21/16 17:00 58 12/21/16 17:00 24 12/21/16 17:00 16 12/21/16 16:56 151/73 12/21/16 16:56 62 12/21/16 16:55 65 17 16:51 167/75 12/21/16 16:51 62 12/21/16 16:49 62 173/79 12/21/16 16:46 65 170/89 12/21/16 16:45 98.0 16 17 16:45 68 17 16:45 24 17 16:42 70 161/116 17 16:37 79 206/107 17 16:35 73 17 16:30 68 1417 16:30 24 14/17 16:28 62 198/90 17 16:15 62 24 14/17 16:10 65 1417 16:05 61 1417 16:01 61 195/89 12/21/16 16:00 24 17 16:00 62 14/17 15:55 59 14/17 15:35 61 14/17 15:30 60 14/17 15:25 59 14/17 15:20 60 14/17 15:15 98.5 24 14/17 15:15 61 8/14/17 15:10 60 814/17 15:05 60 14/17 15:01 64 130/70 14/17 15:00 62 814/17 14:50 61 814/17 14:45 60 814/17 14:35 59 14/17 14:35 16 14/17 14:31 58 145/71 14/17 14:30 60 14/17 14:25 61 14/17 14:20 60 150/66 14/17 14:20 80 14/17 14:15 60 14/17 14:15 23 14/17 14:15 97.9 14/17 14:01 60 158/72 14/17 14:00 65 14/17 13:55 59 14/17 13:52 62 171/88 14/17 13:50 59 14/17 13:45 61 14/17 13:40 59 14/17 13:35 61 14/17 13:33 64 169/84 14/17 13:31 61 160/77 14/17 13:30 64 14/17 13:25 62 14/17 13:20 63 14/17 13:15 62 14/17 13:15 24 14/17 13:10 62 14/17 13:05 61 14/17 13:01 62 169/87 14/17 13:00 64 1417 12:57 62 155/93 14/17 12:55 65 14/17 12:50 58 14/17 12:45 58 14/17 12:10 59 14/17 12:05 87 14/17 12:01 70 126/100 1417 12:00 62 1417 11:55 57 14/17 11:50 58 170/87 14/17 11:50 56 14/17 11:45 56 14/17 11:11 24 14/17 11:11 98.5 14/17 11:10 61 14/17 11:05 60 8/14/17 11:02 61 164/85 12/21/16 10:15 26 12/21/16 10:09 65 161/86 12/21/16 09:43 67 158/91 Result Diagram: 12/22/1644212/22/16442 Objective Remarks GENERAL: Well-nourished, well-developed patient. CARDIOVASCULAR: Regular rate and rhythm without murmurs, gallops, or rubs. RESPIRATORY: Breath sounds equal bilaterally. No accessory muscle use. ABDOMEN/GI: Abdomen soft, non-tender, bowel sounds present. Incision: Clean, dry and intact. Fundus: Firm, non-tender at umbilicus. GENITOURINARY: Light to moderate bleeding. EXTREMITIES: No cyanosis or edema, non-tender, without signs of DVT. Medications and IVs Current Medications Medications (Trade) Dose Ordered Sig/[place] Route Start Time Stop Time Status Last Admin (Lr 1000 ml Inj) 1,000 ml @ 100 mls/hr Q10H IV 12/22/16 04:09 12/23/16 00:08 12/22/16 03:00 (NS Flush) 2 ml BID IV FLUSH 12/22/16 09:00 (NS Flush) 2 ml UNSCH PRN IV FLUSH 12/21/16 23:15 (Tylenol) 650 mg Q6H PRN PO 12/21/16 23:15 (Motrin) 600 mg Q6H PRN PO 12/21/16 23:15 (Percocet 5-325 Mg) 1 tab Q4H PRN PO 12/21/16 23:15 (Percocet 5-325 Mg) 2 tab Q4H PRN PO 12/21/16 23:15 (Tiffanie-Colace) 2 tab Q12H PRN PO 12/21/16 23:15 (M-M-R Ii Inj) 0.5 ml ONCE ONCE SQ 12/22/16 16:00 12/22/16 16:01 (Boostrix Inj) 0.5 ml ONCE ONCE IM 12/22/16 16:00 12/22/16 16:01 Ondansetron HCl 4 mg 4 mg Q6H PRN IV PUSH 12/21/16 23:15 12/22/16 05:38 (Magnesium Sulfate 40 Gm Premix) 1,000 ml @ 50 mls/hr Q20H IV 12/21/16 23:18 Ketorolac Tromethamine 30 mg 30 mg Q6H PRN IM 12/21/16 23:30 12/22/16 23:29 12/22/16 06:06 (Ancef Inj/NS Inj) 100 ml @ 200 mls/hr Q8HR IV 12/22/16 06:00 12/22/16 14:29 12/22/16 05:38 (Trandate Inj) 20 mg Q20M PRN IV PUSH 12/22/16 06:30 12/22/16 06:32 (Trandate) 200 mg Q12HR PO 12/22/16 09:00 Assessment/Plan Assessment and Plan 41 y/o female who is POD# 1 s/p emergency CXN for cord prolapse. -Continue Magnesium Sulfate x 24 hours (started 12/21 at 1200) -Continue Labetalol 20mg IV PRN BP >160/110 and home dose of labetalol 200mg PO BID - Continue to monitor strict I's and O's hourly. Urine output decreasing as low as 45 cc/hr. If urine output reaches less than or equal to 30cc/hr, will try 500cc fluid bolus. -Continue routine care. -Percocet and Motrin PRN pain. -Encouraged OOB. Advised pelvic rest for 6 wks. Will need a f/u appt. in 1 wk for incision check. -Re: ctrl, she would like to consider options. -D/c in 1-[address] Mir and Dr. Reddy R1 Dunia Allen MD, R3 Dec 22, 2016 08:04
[2016-12-22] MEDS: oxyCODONE/ACETAMINOPHEN 5 MG/325 MG TAB PO PRN ×2 (08:24→20:23)
[2016-12-22] MEDS ORDERED: SODIUM CHLORIDE 0.9% FLUSH 10 ML FLUSH IV FLUSH SCH (09:00)
[2016-12-22] MEDS: LABETALOL HCL 200 MG TAB PO SCH ×2 (09:06→20:23)
[2016-12-22] MEDS ORDERED: OXYTOCIN 30 UNITS-500ML PREMIX 500 ML IV PRN (09:15)
[2016-12-22] MEDS ORDERED: ENOXAPARIN SODIUM 40 MG/0.4 ML SYRINGE SQ SCH (10:00)
[2016-12-22] MEDS: ENOXAPARIN SODIUM 80 MG/0.8 ML SYRINGE SQ SCH (10:55)
[2016-12-22] MEDS ORDERED: FUROSEMIDE 20 MG/2 ML VIAL IV PUSH STA (15:31)
[2016-12-22] MEDS ORDERED: MEASLES, MUMPS, RUBELLA VACCINE 0.5 ML VIAL SQ ONE (16:00)
[2016-12-22] MEDS ORDERED: DIPHTH/TETANUS/ACEL PERTUSSIS (BOOSTER) 0.5 ML VIAL/PFS IM ONE (16:00)
--- NOTE | 2016-12-22 19:52 | HHI.PR ---
EDUCATIONAL COORDINATOR Note Note Patient very hungry. Passing flatus, minimal abdominal pain. Laboratory Tests Test 12/21/16 12/21/16 12/21/16 12/21/16 10:20 11:00 15:15 21:57 White Blood Count 5.2 TH/MM3 Red Blood Count 3.76 MIL/MM3 Hemoglobin 10.1 GM/DL Hematocrit 31.4 % Mean Corpuscular Volume 83.3 FL Mean Corpuscular Hemoglobin 26.9 PG Mean Corpuscular Hemoglobin 32.3 % Concent Red Cell Distribution Width 17.7 % Platelet Count 262 TH/MM3 Mean Platelet Volume 7.4 FL Neutrophils (%) (Auto) 69.7 % Lymphocytes (%) (Auto) 21.8 % Monocytes (%) (Auto) 6.9 % Eosinophils (%) (Auto) 1.4 % Basophils (%) (Auto) 0.2 % Neutrophils # (Auto) 3.6 TH/MM3 Lymphocytes # (Auto) 1.1 TH/MM3 Monocytes # (Auto) 0.4 TH/MM3 Eosinophils # (Auto) 0.1 TH/MM3 Basophils # (Auto) 0.0 TH/MM3 CBC Comment DIFF FINAL Differential Comment Sodium Level 136 MEQ/L Potassium Level 3.3 MEQ/L Chloride Level 106 MEQ/L Carbon Dioxide Level 21.2 MEQ/L Anion Gap 9 MEQ/L Blood Urea Nitrogen 9 MG/DL Creatinine 0.90 MG/DL Estimat Glomerular Filtration 84 ML/MIN Rate Random Glucose 73 MG/DL Uric Acid 6.7 MG/DL Calcium Level 8.5 MG/DL Total Bilirubin 0.4 MG/DL Aspartate Amino Transf 40 U/L (AST/SGOT) Alanine Aminotransferase 48 U/L (ALT/SGPT) Alkaline Phosphatase 125 U/L Total Protein 7.3 GM/DL Albumin 2.7 GM/DL Blood Type A POSITIVE Antibody Screen NEGATIVE Band and Hold Urine Color YELLOW Urine Turbidity CLEAR Urine pH 6.5 Urine Specific [place] 1.026 Urine Protein 30 mg/dL Urine Glucose (UA) NEG mg/dL Urine Ketones NEG mg/dL Urine Occult Blood NEG Urine Nitrite NEG Urine Bilirubin NEG Urine Urobilinogen LESS THAN 2.0 MG/DL Urine Leukocyte Esterase TRACE Urine RBC 2 /hpf Urine WBC 5 /hpf Urine Squamous Epithelial 3 /hpf Cells Urine Bacteria RARE /hpf Urine Mucus MOD /lpf Microscopic Urinalysis Comment CATH-CULTURE IND Rapid Plasma Reagin NON-REACTIVE Blood Gas Puncture Site CORD BLOOD Blood Gas Base Excess -10.0 mmol/L Blood Gas Oxygen Saturation 9 % Cord Blood HCO3 20 mmol/L Cord Arterial Blood pH 6.97 Cord Arterial Blood PCO2 93 mmHG Cord Arterial Blood PO2 14 mmHG Test 12/22/16 04:43 White Blood Count 7.8 TH/MM3 Red Blood Count 3.57 MIL/MM3 Hemoglobin 9.5 GM/DL Hematocrit 30.0 % Mean Corpuscular Volume 83.9 FL Mean Corpuscular Hemoglobin 26.7 PG Mean Corpuscular Hemoglobin 31.8 % Concent Red Cell Distribution Width 18.2 % Platelet Count 223 TH/MM3 Mean Platelet Volume 7.6 FL Neutrophils (%) (Auto) 82.4 % Lymphocytes (%) (Auto) 11.3 % Monocytes (%) (Auto) 5.7 % Eosinophils (%) (Auto) 0.4 % Basophils (%) (Auto) 0.2 % Neutrophils # (Auto) 6.4 TH/MM3 Lymphocytes # (Auto) 0.9 TH/MM3 Monocytes # (Auto) 0.4 TH/MM3 Eosinophils # (Auto) 0.0 TH/MM3 Basophils # (Auto) 0.0 TH/MM3 CBC Comment DIFF FINAL Differential Comment Sodium Level 137 MEQ/L Potassium Level 3.4 MEQ/L Chloride Level 105 MEQ/L Carbon Dioxide Level 20.6 MEQ/L Anion Gap 11 MEQ/L Blood Urea Nitrogen 10 MG/DL Creatinine 0.91 MG/DL Estimat Glomerular Filtration 83 ML/MIN Rate Random Glucose 78 MG/DL Uric Acid 6.8 MG/DL Calcium Level 7.6 MG/DL Total Bilirubin 0.5 MG/DL Aspartate Amino Transf 40 U/L (AST/SGOT) Alanine Aminotransferase 44 U/L (ALT/SGPT) Alkaline Phosphatase 99 U/L Total Protein 6.2 GM/DL Albumin 2.2 GM/DL Patient has had limited urine output most of today approx 15-20cc/hr. Lasix 20mg IV given with immediate response of 75-150cc/hr. Blood pressure continues to be acceptable presently on oral labetalol and IV magnesium sulfate Adali Waller MD Dec 22, 2016 19:52
[2016-12-22] MEDS: IBUPROFEN 600 MG TAB PO PRN (20:23)
--- NOTE | 2016-12-22 21:19 | MP ---
cc: PARADISE ROMERO MD DATE OF SURGERY 12/21/16 PREOPERATIVE DIAGNOSIS 38 week, 6 day intrauterine , chronic hypertension, for induction with umbilical cord prolapse at 8 cm and bradycardia. POSTOPERATIVE DIAGNOSIS 38 week, 6 day intrauterine , chronic hypertension, for induction with umbilical cord prolapse at 8 cm and bradycardia. PROCEDURE PERFORMED Classical section, emergent. SURGEON Clarke. ANESTHESIA Epidural. PREOPERATIVE NOTE The patient is a 41-year-old black female, with uncontrolled hypertension, shortness of breath, chest pain and very high blood pressures. [place] needed induction of labor for possible superimposed preeclampsia. She underwent induction of labor, early rupture of the membranes at approximately 5 cm with internal monitor placement. She was on pitocin. She labored through most of the day. At approximately 8 cm had a large bradycardic episode times two. I check the patient and she was 8 cm but also a prolapsed a good segment of cord into the vagina. The head was elevated off the cord and the patient taken back for emergency section. PROCEDURE IN DETAIL The patient was taken to the operating room, placed in supine position on the operating table. Adequate epidural anesthesia was administered. She was prepped and draped. A vertical skin incision was made from 6 cm below the umbilicus to above and around the umbilicus and above it another 4 to 5 cm. That incision was carried to the fascial level. The patient really had no fascia, was all displayed laterally. Really there was only a very small connective tissue layer and then the bowel was right there. Once we entered the cavity there was no sign of injury to the bowel. The bowel was manipulated up and out and the uterus was exposed. The fundus was exposed and a scalpel was used to incise the fundus vertically and enter the cavity when clear fluid noted. The incision in the uterus was extended superiorly and inferiorly with bandage scissors. The baby was palpated with small ___ in the fundus and those were grasped with the baby delivered in the footling breech through the uterine fundus. The baby was delivered at 21:57 p.m., male infant, weight 3410 grams, 5, 8. Cord pH obtained, was 6.97 with a PCO2 of 93 and a base excess of -10 indicating a respiratory acidosis primarily. Cord blood also was obtained and sent to the lab. Placental manually extracted. The uterus was elevated into the upper abdomen and exteriorized to some degree. A large classical vertical incision was present and was sewn in layers, 0 Chromic was run in the first layer and the subsequent layers with 2-0 and 0 Vicryl, just each layer closing the incision down more and more with each level of suture imbricating the previous one. There was at least 3 layers of sutures used in an imbricating fashion to pull those myometrium together. Then, a running 0 Vicryl suture was used to just close the uterine serosa completely and was hemostatic. The uterus was manipulated back into the pelvis and abdomen. The bowel reapproximated back into the abdominal cavity. The fascia and peritoneum and subfascial tissues were all closed in block in mass layer running suture of 0 PDS and this incision closure with a running lock suture starting inferiorly, moving to superiorly. Care was taken to avoid the omentum and bowel. Once this was closed then the subcu tissues were reapproximated with running 2-0 Vicryl and then the skin closed with 3-0 Monocryl subcuticular stitch, Steri-Strips and pressure dressing applied. The estimated blood loss was 1000 cc. There were no complications to the delivery other than the cord prolapse causing the section. There was no count, the sponges initially the section occurred too fast and so x-ray was called in a flat plate shot while on the table. There were no signs of retained sponge or instrumentation. The patient was taken to the recovery room in stable condition. The baby to NICU. MD MICHAELA Wild/SHIRLEY /11:32 PM /8:43 PM
[2016-12-23] MEDS: oxyCODONE/ACETAMINOPHEN 5 MG/325 MG TAB PO PRN ×6 (00:17→20:52)
[2016-12-23 00:20] VITALS: BP 121/57; PULSE 61; RESP 16; TEMP 98.3
[2016-12-23 04:40] VITALS: BP 146/61; PULSE 60; RESP 18; TEMP 98.5
[2016-12-23] MEDS: IBUPROFEN 600 MG TAB PO PRN ×2 (04:57→12:46)
[2016-12-23 07:35] VITALS: BP 142/69; PULSE 61; RESP 20; TEMP 98.1
--- NOTE | 2016-12-23 07:50 | HHI.OB ---
Subjective Remarks Postoperative day # 2 AFVSS overnight. Incision not draining. Decreased lochia. Denies dysuria. No breast tenderness. She is feeding the baby via formula. Appetite good. No nausea or vomiting. Positive flatus. Ambulating well. Denies calf pain. She noted shortness of breath when ambulating right after discontinuation of the magnesium sulfate, however has not had any further shortness of breath. Otherwise, she is doing well this morning and has no other complaints. (Dunia Allen MD, R3) Objective Vitals/I&O Vital Signs Date Time Temp Pulse Resp B/P Pulse Ox O2 Delivery O2 Flow Rate FiO2 12/23/16 04:40 98.5 60 18 146/61 12/23/16 00:20 98.3 61 16 121/57 12/22/16 21:02 58 145/69 12/22/16 20:02 58 140/79 12/22/16 19:01 58 148/91 12/22/16 18:05 55 92 12/22/16 18:02 55 132/70 12/22/16 18:00 18 12/22/16 18:00 53 99 12/22/16 17:29 55 131/65 12/22/16 17:00 56 18 141/68 98 12/22/16 16:27 18 12/22/16 16:02 55 141/62 12/22/16 15:01 81 121/93 12/22/16 14:45 57 98 12/22/16 14:40 58 99 12/22/16 14:35 56 98 12/22/16 14:30 57 96 12/22/16 14:25 57 97 12/22/16 14:20 58 98 12/22/16 14:15 61 98 12/22/16 14:10 59 98 12/22/16 14:05 61 99 12/22/16 14:02 57 137/82 12/22/16 14:00 58 98 12/22/16 13:55 58 100 12/22/16 13:50 20 12/22/16 13:50 58 97 12/22/16 13:45 59 98 12/22/16 13:40 57 98 12/22/16 13:35 59 99 12/22/16 13:30 58 99 12/22/16 13:25 56 97 8/15/17 13:20 59 98 8/15/17 13:10 56 99 8/15/17 13:05 57 99 8/15/17 13:02 57 144/73 8/15/17 12:55 57 100 8/15/17 12:50 57 99 8/15/17 12:45 56 99 8/15/17 12:40 58 99 8/15/17 12:35 56 99 8/15/17 12:30 55 98 8/15/17 12:30 20 8/15/17 12:26 97.7 8/15/17 12:25 57 97 8/15/17 12:20 55 97 8/15/17 12:15 54 96 8/15/17 12:10 54 99 8/15/17 12:05 55 98 8/15/17 12:02 55 146/69 8/15/17 12:00 56 98 8/15/17 11:55 56 99 8/15/17 11:50 59 99 8/15/17 11:50 20 8/15/17 11:45 99 8/15/17 11:45 56 8/15/17 11:40 58 99 8/15/17 11:35 55 97 8/15/17 11:30 54 97 8/15/17 11:25 56 98 8/15/17 11:20 57 99 8/15/17 11:15 59 98 8/15/17 11:10 55 98 8/15/17 11:05 58 98 8/15/17 11:02 55 151/70 8/15/17 10:50 20 8/15/17 10:01 52 163/81 8/15/17 09:50 20 8/15/17 09:20 59 100 8/15/17 09:15 53 99 8/15/17 09:10 53 96 8/15/17 09:06 20 8/15/17 09:05 53 96 8/15/17 09:01 53 147/77 8/15/17 09:00 52 95 8/15/17 08:55 53 98 8/15/17 08:50 53 96 8/15/17 08:50 20 8/15/17 08:45 56 97 8/15/17 08:40 52 96 8/15/17 08:35 51 96 8/15/17 08:30 52 95 8/15/17 08:25 56 98 12/22/16 08:20 56 95 12/22/16 08:15 52 95 12/22/16 08:10 52 94 12/22/16 08:05 54 97 12/22/16 08:01 55 147/75 12/22/16 08:00 55 97 12/22/16 07:55 57 99 12/22/16 07:50 97.8 55 20 98 12/22/16 07:50 20 (Dunia Allen MD, R3) Result Diagram: 12/22/1644212/22/16442 Objective Remarks GENERAL: Well-nourished, well-developed patient. CARDIOVASCULAR: Regular rate and rhythm without murmurs, gallops, or rubs. RESPIRATORY: Breath sounds equal bilaterally. No accessory muscle use. ABDOMEN/GI: Abdomen soft, non-tender, bowel sounds present. Incision: Clean, dry and intact. Fundus: Firm, non-tender at umbilicus. GENITOURINARY: Light to moderate bleeding. EXTREMITIES: No cyanosis or edema, non-tender, without signs of DVT. Medications and IVs Current Medications Medications (Trade) Dose Ordered Sig/[place] Route Start Time Stop Time Status Last Admin (NS Flush) 2 ml BID IV FLUSH 12/22/16 09:00 (NS Flush) 2 ml UNSCH PRN IV FLUSH 12/21/16 23:15 (Tylenol) 650 mg Q6H PRN PO 12/21/16 23:15 (Motrin) 600 mg Q6H PRN PO 12/21/16 23:15 12/23/16 04:57 (Percocet 5-325 Mg) 1 tab Q4H PRN PO 12/21/16 23:15 (Percocet 5-325 Mg) 2 tab Q4H PRN PO 12/21/16 23:15 12/23/16 04:57 (Tiffanie-Colace) 2 tab Q12H PRN PO 12/21/16 23:15 Ondansetron HCl 4 mg 4 mg Q6H PRN IV PUSH 12/21/16 23:15 12/22/16 05:38 (Magnesium Sulfate 40 Gm Premix) 1,000 ml @ 50 mls/hr Q20H IV 12/21/16 23:18 12/22/16 11:16 (Trandate Inj) 20 mg Q20M PRN IV PUSH 12/22/16 06:30 12/22/16 06:32 (Trandate) 200 mg Q12HR PO 12/22/16 09:00 12/22/16 20:23 (Lovenox Inj) 80 mg Q24H SQ 12/22/16 11:00 12/22/16 10:55 (Dunia Allen MD, R3) Assessment/Plan Assessment and Plan 41 y/o female who is POD# 2 s/p emergency CXN for cord prolapse. -s/p Magnesium Sulfate x 24 hours (started 12/21 at 1200) -Continue Lovenox 80mg SQ Q24H for DVT prophylaxis. -Continue Labetalol 20mg IV PRN BP >160/110 and home dose of labetalol 200mg PO BID -Urine output improving. -Continue routine care. -Percocet and Motrin PRN pain. -Encouraged OOB. Advised pelvic rest for 6 wks. Will need a f/u appt. in 1 wk for incision check. -Re: ctrl, she would like to consider options. - Anticipate discharge home tomorrow dw Dr. Waller and Dr. Reddy R1 (Dunia Allen MD, R3) Collaborating MD Comments Discussed patient care. Will change antihypertensive to procardia given the patient's low heart rate. (Adali Waller MD) Dunia Allen MD, R3 Dec 23, 2016 07:50 Adali Waller MD Dec 24, 2016 12:02
[2016-12-23] MEDS: LABETALOL HCL 200 MG TAB PO SCH (08:45)
[2016-12-23] MEDS: DOCUSATE SODIUM 50 MG/SENNA 8.6 MG TAB PO PRN ×2 (08:45→19:56)
[2016-12-23] MEDS: ENOXAPARIN SODIUM 80 MG/0.8 ML SYRINGE SQ SCH (11:20)
[2016-12-23 12:30] VITALS: BP 114/67; PULSE 62; RESP 20; TEMP 98.1
[2016-12-23 16:30] VITALS: BP 145/82; PULSE 62; RESP 20; TEMP 99
[2016-12-23] MEDS ORDERED: KETOROLAC TROMETHAMINE 60 MG/2 ML (IM) VIAL IM PRN (17:00)
[2016-12-23 20:02] VITALS: BP 145/61; PULSE 68; RESP 28; TEMP 98.4
[2016-12-23] MEDS: KETOROLAC TROMETHAMINE 60 MG/2 ML (IM) VIAL IM PRN (23:41)
[2016-12-24] VITALS (7 sets, daily range): BP systolic 138–188; BP diastolic 71–115; PULSE 64–72; RESP 20–24; TEMP 98.2–99.1; O2SAT 98–99
[2016-12-24] MEDS ORDERED: LABETALOL HCL 100 MG/20 ML VIAL IV SCH (04:30)
[2016-12-24] MEDS: oxyCODONE/ACETAMINOPHEN 5 MG/325 MG TAB PO PRN (04:53)
[2016-12-24] MEDS: KETOROLAC TROMETHAMINE 60 MG/2 ML (IM) VIAL IM PRN ×2 (05:30→12:25)
--- NOTE | 2016-12-24 06:57 | HHI.OB ---
Subjective Remarks Postoperative day # 3 AFVSS overnight. Incision not draining. Decreased lochia. Denies dysuria. No breast tenderness. She is feeding the baby via formula. Appetite good. No nausea or vomiting. Positive flatus/bowel movement. Ambulating well. Denies calf pain or shortness of breath. Blood pressures ranging [id number]. Blood pressure elevated as high as 178/89 overnight. Otherwise, she is doing well this morning and has no other complaints. Objective Vitals/I&O Vital Signs Date Time Temp Pulse Resp B/P Pulse Ox O2 Delivery O2 Flow Rate FiO2 12/24/16 05:25 149/83 12/24/16 05:25 98.8 64 24 12/24/16 04:35 98.4 65 20 184/115 12/24/16 04:35 178/89 12/24/16 00:10 98.2 66 22 138/71 12/24/16 00:10 99 12/24/16 00:10 98.2 66 22 138/71 12/24/16 00:10 99 12/23/16 20:02 68 145/61 12/23/16 20:02 98.4 28 12/23/16 16:30 99.0 62 20 145/82 12/23/16 12:30 98.1 12/23/16 12:30 62 20 114/67 12/23/16 07:35 98.1 61 20 142/69 Result Diagram: 12/22/1644212/22/16442 Objective Remarks GENERAL: Well-nourished, well-developed patient. CARDIOVASCULAR: Regular rate and rhythm without murmurs, gallops, or rubs. RESPIRATORY: Breath sounds equal bilaterally. No accessory muscle use. ABDOMEN/GI: Abdomen soft, non-tender, bowel sounds present. Incision: Clean, dry and intact. Fundus: Firm, non-tender at umbilicus. GENITOURINARY: Light to moderate bleeding. EXTREMITIES: No cyanosis or edema, non-tender, without signs of DVT. Medications and IVs Current Medications Medications (Trade) Dose Ordered Sig/[place] Route Start Time Stop Time Status Last Admin (NS Flush) 2 ml BID IV FLUSH 12/22/16 09:00 (NS Flush) 2 ml UNSCH PRN IV FLUSH 12/21/16 23:15 (Tylenol) 650 mg Q6H PRN PO 12/21/16 23:15 (Motrin) 600 mg Q6H PRN PO 12/21/16 23:15 12/23/16 12:46 (Percocet 5-325 Mg) 1 tab Q4H PRN PO 12/21/16 23:15 (Percocet 5-325 Mg) 2 tab Q4H PRN PO 12/21/16 23:15 12/24/16 04:53 (Tiffanie-Colace) 2 tab Q12H PRN PO 12/21/16 23:15 12/23/16 19:56 (Zofran Inj) 4 mg Q6H PRN IV PUSH 12/21/16 23:15 12/22/16 05:38 (Lovenox Inj) 80 mg Q24H SQ 12/22/16 11:00 12/23/16 11:20 (Procardia Xl) 30 mg DAILY PO 12/24/16 09:00 (Toradol Inj) 30 mg Q6H PRN IM 12/23/16 17:00 12/24/16 16:59 12/24/16 05:30 Assessment/Plan Assessment and Plan 41 y/o female who is POD# 3 s/p emergency CXN for cord prolapse. -s/p Magnesium Sulfate x 24 hours (started 12/21 at 1200) -Continue Lovenox 80mg SQ Q24H for DVT prophylaxis. -Labetalol discontinued due to bradycardia. Now on Procardia 30mg XR. -Urine output improving. -Continue routine care. -Percocet and Motrin PRN pain. -Encouraged OOB. Advised pelvic rest for 6 wks. Will need a f/u appt. in 1 wk for incision check. -Re: ctrl, she would like to consider options. - Anticipate discharge home once BP is better controlled in the next 1-[address] Mir and Dr. Reddy R1 Dunia Allen MD, R3 Dec 24, 2016 06:57
[2016-12-24] MEDS ORDERED: oxyCODONE/ACETAMINOPHEN 10 MG/325 MG TAB PO PRN (08:45)
[2016-12-24] MEDS ORDERED: NIFEdipine 30 MG SUSTAINED RELEASE TAB PO SCH (09:00)
[2016-12-24] MEDS: NIFEdipine 30 MG SUSTAINED RELEASE TAB PO SCH (09:24)
[2016-12-24] MEDS: oxyCODONE/ACETAMINOPHEN 10 MG/325 MG TAB PO PRN ×4 (09:24→20:53)
[2016-12-24] MEDS ORDERED: SPIRONOLACTONE 100 MG TAB PO SCH (10:00)
[2016-12-24] MEDS: ENOXAPARIN SODIUM 80 MG/0.8 ML SYRINGE SQ SCH (12:26)
[2016-12-24] MEDS: DOCUSATE SODIUM 50 MG/SENNA 8.6 MG TAB PO PRN (20:52)
[2016-12-24] MEDS: IBUPROFEN 600 MG TAB PO PRN (20:53)
[2016-12-24] MEDS ORDERED: ALBUTEROL SULFATE 90 MCG/ACT HFA 18 GM INHALER INH PRN (23:15)
[2016-12-25] MEDS: oxyCODONE/ACETAMINOPHEN 10 MG/325 MG TAB PO PRN ×4 (01:10→14:53)
[2016-12-25 01:16] VITALS: BP 142/69; PULSE 79; RESP 20; TEMP 98.5; O2SAT 100
[2016-12-25 05:00] VITALS: BP 166/78; PULSE 76; RESP 24; TEMP 97.8; O2SAT 99
[2016-12-25] MEDS: IBUPROFEN 600 MG TAB PO PRN (05:20)
--- NOTE | 2016-12-25 08:39 | HHI.OB ---
Subjective Remarks Postoperative day # 4 AFVSS overnight. Incision not draining. Decreased lochia. Denies dysuria. No breast tenderness. She is feeding the baby via formula. Appetite good. No nausea or vomiting. No flatus/bowel movement yet. Ambulating well. Denies calf pain or shortness of breath. Otherwise, she is doing well this morning and has no other complaints. Objective Vitals/I&O Vital Signs Date Time Temp Pulse Resp B/P Pulse Ox O2 Delivery O2 Flow Rate FiO2 12/25/16 05:00 97.8 76 24 166/78 99 12/25/16 01:16 98.5 79 20 142/69 100 12/24/16 20:15 98 12/24/16 20:15 98.7 72 24 140/74 12/24/16 16:00 156/81 12/24/16 16:00 98.9 72 20 12/24/16 12:35 68 22 188/92 12/24/16 12:35 99.1 Result Diagram: 12/22/163 12/22/16442 Objective Remarks GENERAL: Well-nourished, well-developed patient. CARDIOVASCULAR: Regular rate and rhythm without murmurs, gallops, or rubs. RESPIRATORY: Breath sounds equal bilaterally. No accessory muscle use. ABDOMEN/GI: Abdomen soft, non-tender, bowel sounds present. Incision: Clean, dry and intact. Fundus: Firm, non-tender at umbilicus. GENITOURINARY: Light to moderate bleeding. EXTREMITIES: No cyanosis or edema, non-tender, without signs of DVT. Medications and IVs Current Medications Medications (Trade) Dose Ordered Sig/[place] Route Start Time Stop Time Status Last Admin (NS Flush) 2 ml BID IV FLUSH 12/22/16 09:00 (NS Flush) 2 ml UNSCH PRN IV FLUSH 12/21/16 23:15 (Tylenol) 650 mg Q6H PRN PO 12/21/16 23:15 (Motrin) 600 mg Q6H PRN PO 12/21/16 23:15 12/25/16 05:20 (Tiffanie-Colace) 2 tab Q12H PRN PO 12/21/16 23:15 12/24/16 20:52 (Zofran Inj) 4 mg Q6H PRN IV PUSH 12/21/16 23:15 12/22/16 05:38 (Lovenox Inj) 80 mg Q24H SQ 12/22/16 11:00 12/24/16 12:26 (Procardia Xl) 60 mg DAILY PO 12/24/16 09:00 12/24/16 09:24 (Percocet 10-325 Mg) 1 tab Q4H PRN PO 12/24/16 08:45 12/25/16 05:21 (Percocet 10-325 Mg) 1 tab Q4H PRN PO 12/24/16 08:45 (Ventolin Hfa Inh) 2 puff Q6H PRN INH 12/24/16 23:15 (Prinivil) 10 mg DAILY PO 12/25/16 09:00 Assessment/Plan Assessment and Plan 41 y/o female who is POD# 4 s/p emergency CXN for cord prolapse. -s/p Magnesium Sulfate x 24 hours (12/21-12/22) -Continue Lovenox 80mg SQ Q24H for DVT prophylaxis. -Labetalol discontinued due to bradycardia. Now on Procardia 60mg XR PO daily and Lisinopril 10mg PO daily. - No flatus or BM yet, however tolerating PO. Continue supportive care. -Continue routine care. -Percocet and Motrin PRN pain. -Encouraged OOB. Advised pelvic rest for 6 wks. Will need a f/u appt. in 1 wk for incision check. -Re: ctrl, she would like to consider options. - Anticipate discharge home once BP is better controlled today or tomorrow. marjorie Waller and Dr. Reddy R1 Dunia Allen MD, R3 Dec 25, 2016 08:39
[2016-12-25 09:00] VITALS: BP 167/79; PULSE 68; RESP 20; TEMP 97.9
[2016-12-25] MEDS ORDERED: LISINOPRIL 10 MG TAB PO SCH (09:00)
[2016-12-25] MEDS: NIFEdipine 30 MG SUSTAINED RELEASE TAB PO SCH (09:29)
[2016-12-25] MEDS: DOCUSATE SODIUM 50 MG/SENNA 8.6 MG TAB PO PRN (09:29)
[2016-12-25 09:33] LABS: BICARBONATE 24.8 MEQ/L (21.0-32.0); POTASSIUM 3.7 MEQ/L (3.5-5.1)
[2016-12-25] MEDS ORDERED: PERI8.6T PO (10:25)
[2016-12-25] MEDS ORDERED: LISI10TA3 PO (10:25)
[2016-12-25] MEDS ORDERED: IBUP-232 PO (10:25)
[2016-12-25] MEDS ORDERED: OXYC1TAB36 PO (10:25)
[2016-12-25] MEDS ORDERED: VENTAER INH (10:25)
--- NOTE | 2016-12-25 10:45 | HHI.DCPOC ---
Discharge Care Plan Diagnosis: (1) delivery delivered Report Symptoms to Your Doctor -Temperature above 100.5 degrees -Redness, of incision or excessive or foul smelling drainage -Unusual pain or calf pain -Increased vaginal bleeding -Painful or difficulty urinating -Feelings of extreme sadness or anxiety after 2 weeks Goals to Promote Your Health * To prevent worsening of your condition and complications * To maintain your health at the optimal level Directions to Meet Your Goals Take your medications as prescribed Follow your dietary instruction Follow activity as directed Ensure plenty of rest for recovery Drink fluids for hydration Keep your appointments as scheduled Take your immunizations and boosters as scheduled If your symptoms worsen call your PCP, if no PCP go to Urgent Care Center or Emergency Room Smoking is Dangerous to Your Health. Avoid second hand smoke Call the 24-hour crisis hotline for domestic abuse at Dunia Allen MD, R3 Dec 25, 2016 10:45
[2016-12-25] MEDS ORDERED: NIFE30TA8 PO (11:18)
[2017-01-06] MEDS ORDERED: AMOX500C PO (09:42)
[2017-01-06] MEDS ORDERED: LISI10TA3 PO (09:44)
[2017-01-06] MEDS ORDERED: NIFE30TA8 PO (09:44)
[2017-01-06] MEDS ORDERED: HYDR-3534 PO (09:45)
[2017-01-22] MEDS ORDERED: IBUP-232 PO (11:31)
[2017-01-22] MEDS ORDERED: LISI10TA3 PO (11:31)
[2017-01-26] MEDS ORDERED: NIFE30TA8 PO (11:16)
[2017-01-26] MEDS ORDERED: LISI10TA3 PO (11:16)
[2017-01-26] MEDS ORDERED: VENTAER INH (11:17)
[2017-01-26] MEDS ORDERED: HYDR-3533 PO (11:20)
[2017-01-28] MEDS ORDERED: NIFE30TA8 PO (16:33)
[2017-02-25] MEDS ORDERED: NIFE30TA8 PO (14:26)
== END 2016-12-25 17:32 | disposition home or self-care (01) | DRG 765 ==
LOC: HOBED 08:31 → H2EB 09:46 → H2EA 12-22 01:29 → H1EA 12-22 22:45
PROVIDERS: ADMIT Obstetrics & Gynecology Obstetrics; ATTEND Obstetrics & Gynecology Obstetrics
PROC: 10D00Z0 Extraction of Products of Conception, High, Open Approach (ICD-10-PCS; principal; 2016-12-21)
PROC: 00HU33Z Insertion of Infusion Device into Spinal Canal, Percutaneous Approach (ICD-10-PCS; 2016-12-21)
PROC: 3E0R3CZ (ICD-10-PCS; 2016-12-21)
PROC: 3E033VJ Introduction of Other Hormone into Peripheral Vein, Percutaneous Approach (ICD-10-PCS; 2016-12-21)
DX: O76 Abnormality in fetal heart rate and rhythm complicating labor and delivery (principal); O10.92 Unspecified pre-existing hypertension complicating childbirth; E66.01 Morbid (severe) obesity due to excess calories; H91.90 Unspecified hearing loss, unspecified ear; O99.214 Obesity complicating childbirth; O09.523 Supervision of elderly multigravida, third trimester; Z3A.38 38 weeks gestation of pregnancy; O69.0XX0 Labor and delivery complicated by prolapse of cord, not applicable or unspecified; Z37.0 Single live birth
CPT/HCPCS: 59025; 74000; 76937; 80048; 80053; 81001; 82805; 84550; 85025; 86592; 86850; 86900; 86901; 87086; 88307; 90715; 93005; J0690; J1650; J1885; J1940; J2274; J2405; J2590; J3010; J3475; J7120